=== PATIENT | female | born 1955 | race Caucasian/White ===

== ENCOUNTER → 2017-02-12 | Outpatient (CLI) | payer BC ==
[~2017-02-12] MED LIST: ALLOPURINOL300 MG PO; AMARYL PO; AMARYL2 MG PO; AMOXICILLIN875 MG PO; AVALIDE PO; AVAPRO PO; AVAPRO300 M1 PO; BACTRIM DS TABL1 TA2 PO; CLEOCIN150 MG PO; DAKIN'S MODIF1000 ML EXT; DICLOFENAC PO; GABAPENTIN400 MG PO; GENTAMICIN SULFATE; HCTZ PO; HYDROCHLOROTH12.5 M1 PO; KOMBIGLYZE XR1 EAC2 PO; LINAGLIPTIN PO; LORTAB 7.5-5001 TAB PO; METFORMIN PO; NEXIUM PO; OXYCODONE HCL10 M1 PO; PERCOCET 10/3251 TAB PO; PERCOCET10 PO; SANTYL15 G1 TP; SIMVASTATIN40 MG PO; TRILIPEX PO; VICODIN 5/500 T1 TAB PO; VICTOZA PO; VOLTAREN75 MG PO; WELLBUTRIN SR150 MG PO; ZOCOR PO; ZOCOR20 MG PO; ZYVOX600 MG PO
[2017-02-12 13:44] LABS: ALBUMIN SERUM 3.7 g/dL (3.5-5.0); BILIRUBIN,TOTAL 0.5 mg/dL (0.2-2.0); CALCIUM SERUM 8.8 mg/dL (8.4-10.2); GLOM FILT RATE Estimated 61.2 mL/min (>60); POTASSIUM 4.5 mmol/L (3.5-5.1); PROTEIN TOTAL SERUM 7.3 g/dL (6.0-8.3)
== END | disposition home or self-care (01) ==
LOC: SLAB 12:51
PROVIDERS: Internal Medicine Endocrinology, Diabetes & Metabolism
DX: E11.65 Type 2 diabetes mellitus with hyperglycemia (principal); E78.5 Hyperlipidemia, unspecified; Z79.4 Long term (current) use of insulin; Z68.45 Body mass index [BMI] 70 or greater, adult
CPT/HCPCS: 36415; 80053; 80061; 83036

== ENCOUNTER 2017-04-06 03:03 | Emergency (ER) | payer BC ==
[~2017-04-06] VITALS: Ht 175.3 cm; Wt 136.1 kg
--- NOTE | ~2017-04-06 | EKG ---
PATIENT: MAVIS SERRANO UNIT #: [id number] Ventricular Rate: 88 BPM Atrial Rate: 88 BPM P-R Interval: 168 ms QRS Duration: 136 ms Q-T Interval: 388 ms QTC Calculation(Bezet): 469 ms P [place]: 13 degrees Calculated R [place]: 2 degrees Diagnosis Line: Normal sinus rhythm Diagnosis Line: Right bundle branch block Diagnosis Line: Cannot rule out Inferior infarct , age Diagnosis Line: undetermined Diagnosis Line: Abnormal ECG Diagnosis Line: When compared with ECG of 06-APR-2017 03:02, Diagnosis Line: (unconfirmed) Diagnosis Line: Right bundle branch block is now Present Diagnosis Line: Confirmed by FRANCESCA RAINEY MD ([id number]) on Diagnosis Line: 04/07/2017 3:25:44 PM INTERPRETING MD: REDD ARIZA
--- NOTE | ~2017-04-06 | EKG ---
PATIENT: MAVIS SERRANO UNIT #: [id number] Ventricular Rate: 98 BPM Atrial Rate: 98 BPM P-R Interval: 190 ms QRS Duration: 92 ms Q-T Interval: 378 ms QTC Calculation(Bezet): 482 ms P [place]: 40 degrees Calculated R [place]: 0 degrees Calculated T [place]: 3 degrees Diagnosis Line: Normal sinus rhythm Diagnosis Line: Low voltage QRS Diagnosis Line: Diagnosis Line: Prolonged QT Diagnosis Line: No previous ECGs available Diagnosis Line: Confirmed by FRANCESCA RAINEY MD ([id number]) on Diagnosis Line: 04/07/2017 3:25:20 PM INTERPRETING MD: REDD ARIZA
--- NOTE | ~2017-04-06 | CR72 ---
[facility] A Service of [facility] RADIOLOGY TEXT RESULTS PATIENT: MAVIS SERRANO LOCATION: SED : 57 UNIT #: [id number] AGE: [address]: Dann Vilchis MD SEX: F ORDER DR: [id number] [place] [id number] MR#: [id number] Acc #: [id number] NAME: MAVIS SERRANO. : 1955 SEX: F STUDY DATE/TIME: 04/06/2017 4:29 UNIT: SED ROOM: STUDY DESCRIPTION: CR Chest Single View Portable Attending Physician: Dann Vilchis M.D. Ordering Physician: Dann Vilchis M.D. Primary Care Physician: Jose Kennedy M.D. MEDICAL IMAGING REPORT This report is preliminary unless electronic signature is present. EXAMINATION AP portable chest. DATE 04/06/2017 HISTORY 61-year-old female with acute chest pain and shortness of breath tonight. COPD. Hypertension. Diabetes. COMPARISON None. FINDINGS Low volume inspiration. Mild cardiac enlargement. Questionable mild right infrahilar infiltrate. Left lung appears clear. No visible pneumothorax. IMPRESSION 1. Questionable mild right infrahilar infiltrate. 2. Mild cardiomegaly. No evidence of pulmonary edema. 3. Study is attenuated by the patient's body habitus. 4. No prior examinations for comparison at this institution. Dictated by... Britany Gibbs M.D. THIS IS AN ELECTRONICALLY VERIFIED REPORT Britany Gibbs M.D. at 04/06/2017 9:39 PM CAMILO/victorino TD: 04/06/2017 19:09 [facility] A Service [facility] RADIOLOGY TEXT RESULTS PATIENT: MAVIS SERRANO LOCATION: SED : 57 UNIT #: [id number] AGE: [address]: Dann Vilchis MD SEX: F ORDER DR: KENJI #: [id number] MEDICAL IMAGING REPORT Page 1 of 1
[2017-04-06 03:19] LABS: BASOPHIL# 0.1 X10e3 (0-0.3); EOSINOPHIL# 0.4 X10e3 (0-0.7); EOSINOPHIL% 3.4 % (0.0-7.0); HEMATOCRIT 40.8 % (35.0-45.0); HEMOGLOBIN 13.1 gm/dL (12.0-16.0); LYMPHOCYTE# 2.9 X10e3 (1.0-3.5); LYMPHOCYTE% 27.9 % (17.0-45.0); MEAN CELL VOLUME 86.5 FL (83-96); MEAN CORPUSCULAR HEMOGLOBIN 27.9 PG (28-34); MEAN CORPUSCULAR HGB CONC 32.2 g/dL (30-36); MEAN PLATELET VOLUME 10.3 FL (6.5-11.5); MONOCYTE% 9.8 % (3.0-12.0); NEUTROPHIL# 5.9 X10e3 (1.5-7.1); NEUTROPHIL% 57.9 % (40-75); PLATELET COUNT 224 X10e3 (140-420); RED BLOOD COUNT 4.71 X10e (3.90-5.30); RED CELL DISTRIBUTION WIDTH 15.9 % (11.0-15.5); WHITE BLOOD COUNT 10.2 X10e3 (4.0-10.5)
[2017-04-06 03:21] LABS: DIFF IND NO
[2017-04-06 03:26] LABS: INR 0.9; PROTHROMBIN TIME (PATIENT) 10.6 SECONDS (9.5-12.4)
[2017-04-06 03:34] LABS: PARTIAL THROMBOPLASTIN TIME 37.1 SECONDS (25.6-38.1)
[2017-04-06 03:35] LABS: POC - CKMB <1.0 ng/mL (0.0-7.9)
[2017-04-06 03:35] LABS: ALBUMIN SERUM 3.7 g/dL (3.5-5.0); BILIRUBIN, DIRECT 0.1 mg/dL (0.0-0.2); BILIRUBIN,INDIRECT 0.3 mg/dL (0.0-0.9); BILIRUBIN,TOTAL 0.4 mg/dL (0.2-2.0); BUN/CREATININE RATIO 33.63; CREATININE SERUM 1.1 mg/dL (0.6-1.4); GLOM FILT RATE Estimated 54.5 mL/min (>60); PROTEIN TOTAL SERUM 7.1 g/dL (6.0-8.3)
[2017-04-06 03:36] LABS: POC - TROPONIN <0.05 ng/mL (<=0.05)
[2017-04-06 05:05] LABS: POC - CKMB <1.0 ng/mL (0.0-7.9); POC - TROPONIN <0.05 ng/mL (<=0.05)
== END 2017-04-06 06:52 ==
LOC: SED 03:03
PROVIDERS: Emergency Medicine
DX: R07.9 Chest pain, unspecified (principal); E11.9 Type 2 diabetes mellitus without complications; E78.5 Hyperlipidemia, unspecified; I10 Essential (primary) hypertension; J44.9 Chronic obstructive pulmonary disease, unspecified; Z88.1 Allergy status to other antibiotic agents; Z79.899 Other long term (current) drug therapy
CPT/HCPCS: 36415; 71010; 80048; 80076; 82553; 84484; 85025; 85610; 85730; 93005; 96374; 99285; J2060

== ENCOUNTER → 2017-04-18 | Outpatient (CLI) | payer BC | END | disposition home or self-care (01) | LOC: SLABONLY 14:00 | DX: E11.65 Type 2 diabetes mellitus with hyperglycemia (principal) | CPT/HCPCS: 36415; 83036 ==